=== PATIENT | female | born 1975 | race Caucasian/White ===

== ENCOUNTER 2024-12-19 17:19 | Observation (INO) | payer OTHER ==
[2024-12-19] MEDS: SODIUM CHLORIDE 1,000 ML IV STA (18:46)
[2024-12-19 19:35] LABS: ABSOLUTE IMMATURE GRANULOCYTES 0.01 x10^3/uL (0.0-0.031); BASOPHILS # 0.02 x10^3/uL (0.01-0.08); EOSINOPHILS # 0.05 x10^3/uL (0.04-0.36); HEMATOCRIT 36.5 % (34.1-44.9); HEMOGLOBIN 11.8 g/dL (11.2-15.7); MCHC 32.3 g/dl (32.2-35.5); MEAN CELL VOLUME 77.7 fl (79.4-94.8); MEAN PLT VOLUME 10.7 fl (9.4-12.3); MONOCYTE % 6.3 % (4.7-12.5); PLATELET COUNT 232 x10^3/uL (182-369); RDW 16.2 % (12.2-17.1)
[2024-12-19 19:45] LABS: INR 1.11 (0.83-1.09); PROTHROMBIN TIME (PATIENT) 12.1 SEC (9.7-13.0)
[2024-12-19 19:48] LABS: ACTIVATED PTT 32.6 SECONDS (25.2-36.5)
[2024-12-19 19:58] LABS: POTASSIUM 3.9 mmol/L (3.5-5.1)
[2024-12-19 20:02] LABS: ALBUMIN 3.8 g/dl (3.4-5.0); BLOOD UREA NITROGEN 11.5 mg/dL (7-18)
[2024-12-19 20:05] LABS: CREATININE 0.7 mg/dL (0.55-1.3)
[2024-12-19 20:06] LABS: BILIRUBIN,TOTAL 0.6 mg/dL (0.2-1); TOT PROT 7.3 g/dl (6.4-8.2)
[2024-12-19] MEDS ORDERED: SODIUM CHLORIDE 1,000 ML IV SCH (22:45)
[2024-12-20 07:57] LABS: ABSOLUTE IMMATURE GRANULOCYTES 0.01 x10^3/uL (0.0-0.031); BASOPHILS # 0.03 x10^3/uL (0.01-0.08); EOSINOPHIL % 1.7 % (0.7-5.8); EOSINOPHILS # 0.06 x10^3/uL (0.04-0.36); HEMATOCRIT 37.1 % (34.1-44.9); HEMOGLOBIN 11.8 g/dL (11.2-15.7); MCHC 31.8 g/dl (32.2-35.5); MEAN CELL VOLUME 78.8 fl (79.4-94.8); MEAN PLT VOLUME 10.1 fl (9.4-12.3); MONOCYTE # 0.27 x10^3/uL (0.24-0.86); MONOCYTE % 7.7 % (4.7-12.5); PLATELET COUNT 201 x10^3/uL (182-369); RDW 16.7 % (12.2-17.1)
[2024-12-20 08:01] LABS: Reticulocyte % 0.51 % (0.5-1.7)
[2024-12-20 08:07] LABS: POTASSIUM 3.7 mmol/L (3.5-5.1)
[2024-12-20 08:14] LABS: ALBUMIN 3.3 g/dl (3.4-5.0); BLOOD UREA NITROGEN 11.4 mg/dL (7-18); CALCIUM 8.5 mg/dL (8.5-10.1)
[2024-12-20 08:15] LABS: PHOSPHOROUS 3.7 mg/dL (2.5-4.9)
[2024-12-20 08:17] LABS: BILIRUBIN,TOTAL 0.4 mg/dL (0.2-1); CREATININE 0.6 mg/dL (0.55-1.3); TOT PROT 6.4 g/dl (6.4-8.2)
[2024-12-20] MEDS ORDERED: DEXTROSE 5%-NORMAL SALINE 1,000 ML IV SCH (09:15)
[2024-12-20] MEDS: PANTOPRAZOLE SODIUM 40 MG VIAL IVPUSH SCH (09:59)
[2024-12-20] MEDS: PANTOPRAZOLE 40 MG TABLET PO SCH (21:48)
[2024-12-21 01:24] VITALS: RESP 18
[2024-12-21 08:35] LABS: HEMATOCRIT 37.2 % (34.1-44.9); MCHC 32.3 g/dl (32.2-35.5); MEAN CELL VOLUME 77.5 fl (79.4-94.8); MEAN PLT VOLUME 10.3 fl (9.4-12.3); PLATELET COUNT 219 x10^3/uL (182-369); RDW 16.3 % (12.2-17.1)
[2024-12-21 08:54] LABS: POTASSIUM 3.9 mmol/L (3.5-5.1)
[2024-12-21 09:04] LABS: CALCIUM 9.1 mg/dL (8.5-10.1)
[2024-12-21 09:05] LABS: ALBUMIN 3.4 g/dl (3.4-5.0); BLOOD UREA NITROGEN 8.4 mg/dL (7-18); MAGNESIUM 1.9 mg/dL (1.8-2.4)
[2024-12-21 09:08] LABS: CREATININE 0.7 mg/dL (0.55-1.3)
[2024-12-21 09:09] LABS: BILIRUBIN,TOTAL 0.4 mg/dL (0.2-1); TOT PROT 6.7 g/dl (6.4-8.2)
[2024-12-21 15:03] VITALS: BMI 21.6
[2024-12-21 18:14] VITALS: BP 92/69; PULSE 99; TEMP 97.5
== END 2024-12-21 19:23 | disposition home or self-care (01) ==
LOC: JER 17:19 → JERBED 18:35 → J7W 23:29
PROVIDERS: ADMIT Hospitalist; ATTEND Physician Assistant
PROC: 3E033GC Introduction of Other Therapeutic Substance into Peripheral Vein, Percutaneous Approach (ICD-10-PCS; 2024-12-19)
PROC: 3E0337Z Introduction of Electrolytic and Water Balance Substance into Peripheral Vein, Percutaneous Approach (ICD-10-PCS; 2024-12-19)
PROC: 0DB68ZX Excision of Stomach, Via Natural or Artificial Opening Endoscopic, Diagnostic (ICD-10-PCS; 2024-12-20)
PROC: 0DB28ZX Excision of Middle Esophagus, Via Natural or Artificial Opening Endoscopic, Diagnostic (ICD-10-PCS; 2024-12-20)
PROC: 0DB38ZX Excision of Lower Esophagus, Via Natural or Artificial Opening Endoscopic, Diagnostic (ICD-10-PCS; principal; 2024-12-20 11:30)
DX: K29.50 Unspecified chronic gastritis without bleeding (principal); R13.10 Dysphagia, unspecified; K21.00 Gastro-esophageal reflux disease with esophagitis, without bleeding; K44.9 Diaphragmatic hernia without obstruction or gangrene; K29.60 Other gastritis without bleeding
CPT/HCPCS: 36415; 71250-TC; 74230-TC-FY; 80053; 82728; 82962; 83540; 83550; 83735; 84100; 85025; 85027; 85610; 85730; 88305-TC; 88342-TC; 92611-GN; 93005; 93010; 99285-25; G0378